=== PATIENT | male | born 2000 | race Caucasian/White ===

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

== ENCOUNTER 2023-12-08 13:00 | Emergency (ER) | payer OTHER ==
--- NOTE | 2023-12-08 13:25 | ED ---
Upper Extremity HPI - General Chief Complaint: Extremity Injury, Upper Stated Complaint: L hand thumb injury Time Seen by Provider: 12/08/23 13:15 Source: patient, RN notes reviewed Mode of arrival: ambulatory Limitations: no limitations - History of Present Illness Initial Comments: 23-year-old male presenting with left thumb injury 1 hour prior to arrival. Patient states he was playing flag football this morning, fell, and landed onto his left thumb. Since the injury, he has had swelling and redness around the base of his left thumb and limited range of motion of the thumb. Denies numbness or tingling. Denies other injuries. - Related Data Home Medications Medication Instructions Recorded Confirmed No Known Home Medications 08/24/20 08/24/20 Allergies Allergy/AdvReac Type Severity Reaction Status Date / Time cat dander Allergy Dyspnea Verified 12/08/23 13:09 Review of Systems ROS Statement: Those systems with pertinent positive or pertinent negative responses have been documented in the HPI. ROS Other: All systems not noted in ROS Statement are negative. Past Medical History Past Medical History: No Reported History History of Any Multi-Drug Resistant Organisms: None Reported Past Surgical History: No Surgical Hx Reported Past Psychological History: No Psychological Hx Reported Smoking Status: Light tobacco smoker Past Alcohol Use History: None Reported Past Drug Use History: None Reported General Exam Limitations: no limitations General appearance: alert, in no apparent distress Head exam: Present: atraumatic, normocephalic, normal inspection Left Elbow exam: Present: normal inspection, full ROM. Absent: tenderness, swelling Forearm Wrist exam: Present: normal inspection, full ROM. Absent: tenderness, swelling Hand Wrist exam: Present: tenderness, swelling. Absent: normal inspection (Diffuse edema around first metacarpophalangeal of left hand. + Snuffbox tenderness. Limited range of motion of metacarpophalangeal joint of first digit. Full DIP range of motion. Cap refill less than 2 seconds, sensation intact.), full ROM, abrasion, laceration, deformity Course Vital Signs 12/08/23 12/08/23 13:07 14:59 Temperature 99 F 98.4 F Pulse Rate 102 H 89 Respiratory 20 16 Rate Blood Pressure 119/85 127/81 O2 Sat by Pulse 99 99 Oximetry Procedures - Orthopedic Splinting/Casting Injury #1 Side: left Upper Extremity Injury Location: hand Upper Extremity Immobilizer: thumb spica Additional Comments: Neurovascularly intact status post splint Medical Decision Making - Medical Decision Making Was pt. sent in by a medical professional or institution (, [facility], BODY SHOP TECHNICIAN, urgent care, hospital, or custodial...) When possible be specific @ -No Did you speak to anyone other than the patient for history (EMS, parent, family, police, friend...)? What history was obtained from this source @ -No Did you review nursing and triage notes (agree or disagree)? Why? @ -I reviewed and agree with nursing and triage notes Were old charts reviewed (outside hosp., previous admission, EMS record, old EKG, old radiological studies, urgent care reports/EKG's, custodial records)? Report findings @ -No old charts were reviewed Differential Diagnosis (chest pain, altered mental status, abdominal pain women, abdominal pain men, vaginal bleeding, weakness, fever, dyspnea, syncope, headache, dizziness, GI bleed, back pain, seizure, CVA, palpatations, mental health, musculoskeletal)? @ -Differential Musculoskeletal Muscular strain, contusion, ligament sprain, fracture, arthritis, septic arthritis, bursitis, cellulitis, muscle spasm, nerve compression, DVT, arterial occlusion, herpes zoster, electrolyte abnormality, tumor.... This is not meant to be in all inclusive list EKG interpreted by me (3pts min.). @ -None X-rays interpreted by me (1pt min.). @ -X-ray of left hand reveals no acute process CT interpreted by me (1pt min.). @ -None done U/S interpreted by me (1pt. min.). @ -None done What testing was considered but not performed or refused? (CT, X-rays, U/S, labs)? Why? @ -None What meds were considered but not given or refused? Why? @ -None Did you discuss the management of the patient with other professionals (professionals i.e. , [facility], BODY SHOP TECHNICIAN, lab, RT, psych nurse, social media job titles, business transformation analyst, teacher, court security officer, gearcase assembler)? Give summary @ -No Was smoking cessation discussed for >3mins.? @ -No Was critical care preformed (if so, how long)? @ -No Were there social determinants of health that impacted care today? How? (Homelessness, low income, unemployed, alcoholism, drug addiction, transportation, low edu. Level, literacy, decrease access to med. care, [place] [facility], rehab)? @ -No Was there de-escalation of care discussed even if they declined (Discuss DNR or withdrawal of care, Hospice)? DNR status @ -No What co-morbidities impacted this encounter? (DM, HTN, Smoking, COPD, CAD, Cancer, CVA, ARF, Chemo, Hep., AIDS, mental health diagnosis, sleep apnea, morbid obesity)? @ -None Was patient admitted / discharged? Hospital course, mention meds given and route, prescriptions, significant lab abnormalities, going to OR and other pertinent info. @ -Patient was discharged. Patient was seen and evaluated for left thumb injury prior to arrival. Patient is neurovascularly intact. There is snuffbox tenderness. X-ray reveals no acute process. Discussed findings with patient. Thumb spica splint performed due to snuffbox tenderness and advised orthopedic follow-up. Strict return precautions discussed. Supportive care discussed and patient is agreeable to plan. Case was discussed with my ED attending Dr. Juan. Patient discharged in stable condition. Undiagnosed new problem with uncertain prognosis? @ -No Drug Therapy requiring intensive monitoring for toxicity (Heparin, Nitro, Insulin, Cardizem)? @ -No Were any procedures done? @ -Thumb spica splint Diagnosis/symptom? @ -Left thumb sprain Acute, or Chronic, or Acute on Chronic? @ -Acute Uncomplicated (without systemic symptoms) or Complicated (systemic symptoms)? @ -Uncomplicated Side effects of treatment? @ -No Exacerbation, Progression, or Severe Exacerbation? @ -No Poses a threat to life or bodily function? How? (Chest pain, [place], [place], pneumonia, PE, COPD, DKA, ARF, appy, cholecystitis, CVA, Diverticulitis, Homicidal, Suicidal, threat to staff... and all critical care pts) @ -No Disposition Clinical Impression: Sprain of left thumb Disposition: HOME SELF-CARE Condition: Stable Instructions (If sedation given, give patient instructions): Hand Sprain (ED) Additional Instructions: Keep splint dry. Use elevation and ice to affected area. Take ibuprofen or Tylenol as needed for pain. Follow-up with orthopedics as discussed. Please return to the Emergency Department if symptoms worsen or any other concerns. Is patient prescribed a controlled substance at d/c from ED?: No Referrals: Abelardo Trejo MD [Primary Care Provider] - 1-2 days Pratik Muñoz DO [Doctor of Osteopathic Medicine] - 1-2 days Time of Disposition: 14:44
--- NOTE | 2023-12-08 14:10 | XR ---
Left hand. HISTORY: Football injury. COMPARISON: None. TECHNIQUE: 3 views left hand were obtained. Left hand. HISTORY: Pain following trauma. COMPARISON: None TECHNIQUE: 3 views left hand were obtained. FINDINGS: There is no fracture, dislocation, intraosseous or intra-articular abnormality. The soft tissues are normal. IMPRESSION: No significant abnormality seen.
[2023-12-08 15:00] VITALS: BP 127/81; PULSE 89; RESP 16; TEMP 98.4
== END 2023-12-08 15:01 | disposition home or self-care (01) ==
LOC: EC 13:00
CPT/HCPCS: 29125; 99283

== ENCOUNTER → 2024-07-10 | Outpatient (CLI) | payer OTHER ==
--- NOTE | 2024-07-10 10:25 | US ---
EXAMINATION TYPE: US abdomen complete DATE OF EXAM: 07/10/2024 COMPARISON: NONE CLINICAL INDICATION: Male, 24 years old with history of R10.13 Epigastric pain; Epi pain x 3 weeks, i ssues after eating TECHNIQUE: Grayscale and color Doppler imaging of the abdomen was performed. FINDINGS: EXAM MEASUREMENTS: Liver Length: 14.7 cm Gallbladder Wall: 0.2 cm CBD: 0.4 cm, color Doppler imaging was utilized to isolate the common bile duct for measurement. Spleen: 10.8 cm Right Kidney: 10.0 x 5.0 x 4.9 cm Left Kidney: 10.3 x 6.3 x 4.7 cm Pancreas: not seen due to bowel gas Liver: wnl, no dilated ducts, masses or cysts. Gallbladder: wnl Evidence for sonographic Campos's sign: no CBD: wnl Spleen: wnl Right Kidney: wnl, No hydronephrosis, calculi or masses seen Left Kidney: wnl, No hydronephrosis, calculi or masses seen Upper IVC: wnl Abd Aorta: wnl IMPRESSION: 1. No acute ultrasound abnormality of the abdomen. 2. Limitation due to bowel gas. [facility], , 07/10/2024 10:23 AM
--- NOTE | 2024-07-10 10:45 | FL ---
EXAMINATION TYPE: FL UGI air DATE OF EXAM: 07/10/2024 9:16 AM COMPARISON: None. CLINICAL INDICATION: Male, 24 years old with history of R10.13 EPIGASTRIC PAIN, , Total Fluoroscopy Time: 1 minute 18 seconds Total DAP: 75 mGycm2 32 images obtained. FINDINGS: The esophagus has a normal course, caliber, motility and mucosa. There is a tiny sliding hiatal hernia noted. Moderate to severe gastroesophageal reflux during supine turning maneuvers. There is no gastroesophageal reflux identified. The stomach and duodenum are free of any persistent filling defect and demonstrate a normal mucosal p attern. IMPRESSION: Tiny sliding hiatal hernia and moderate to severe gastroesophageal reflux. Otherwise, unremarkable up per GI examination. [facility], , 07/10/2024 10:42 AM
== END | disposition home or self-care (01) ==
LOC: RADUSWWP 07:58
PROVIDERS: ATTEND Family Medicine
DX: K44.9 Diaphragmatic hernia without obstruction or gangrene (principal); K21.9 Gastro-esophageal reflux disease without esophagitis; K62.89 Other specified diseases of anus and rectum; R14.3 Flatulence
CPT/HCPCS: 74246; 76700